=== PATIENT | female | born 1930 | race Caucasian/White ===

== ENCOUNTER 2016-11-21 11:30 | Inpatient (IN) | payer MEDICARE, OTHER ==
[~2016-11-21] VITALS: Ht 160 cm; Wt 75.4 kg
[~2016-11-21 11:30] MED LIST: GLUCOPHAGE 500500 MG PO
[2016-11-21 13:51] LABS: RED BLOOD COUNT 4.48 M/UL (4.00-5.10); WHITE BLOOD COUNT 9.6 K/UL (4.5-11.0)
[2016-11-21] MEDS ORDERED: COUMADIN3 MG PO (20:18)
[2016-11-21] MEDS ORDERED: LIPITOR TAB 1010 MG PO (20:19)
[2016-11-21] MEDS ORDERED: CYMBALTA30 MG PO (20:19)
[2016-11-21] MEDS ORDERED: METOPROLOL SUCC50 MG PO (20:19)
[2016-11-21] MEDS ORDERED: TRAMADOL HCL50 MG PO (20:20)
[2016-11-21] MEDS ORDERED: GLUCOPHAGE 500500 MG PO (20:20)
[2016-11-21] MEDS ORDERED: NORVASC 5 MG TAB5 MG PO (20:21)
[2016-11-21] MEDS ORDERED: HYDROCHLOROTHIA25 MG PO (20:21)
[2016-11-21] MEDS ORDERED: MELATONIN3 MG PO (20:22)
[2016-11-21] MEDS ORDERED: ALLEGRA ALLERG180 MG PO (20:22)
[2016-11-21] MEDS ORDERED: MAGNESIUM250 M1 PO (20:22)
[2016-11-22 07:35] LABS: HEMOGLOBIN 12.7 gm/dl (12.3-15.3); RED BLOOD COUNT 4.34 M/UL (4.00-5.10); WHITE BLOOD COUNT 7.7 K/UL (4.5-11.0)
[2016-11-22 07:50] LABS: BUN/CREATININE RATIO 33 (0-10)
[2016-11-24 06:45] LABS: HEMOGLOBIN 10.7 gm/dl (12.3-15.3); WHITE BLOOD COUNT 6.7 K/UL (4.5-11.0)
[2016-11-24 06:46] LABS: RED BLOOD COUNT 3.76 M/UL (4.00-5.10)
[2016-11-24 06:59] LABS: BUN/CREATININE RATIO 34 (0-10)
[2016-11-25 05:54] LABS: RED BLOOD COUNT 3.5 M/UL (4.00-5.10)
[2016-11-25 06:15] LABS: BUN/CREATININE RATIO 37 (0-10)
[2016-11-26 06:25] LABS: RED BLOOD COUNT 3.83 M/UL (4.00-5.10); WHITE BLOOD COUNT 7.5 K/UL (4.5-11.0)
== END 2016-11-26 20:40 | DRG 481 ==
LOC: ER1 11:30 → ZEROF 17:45 → M/S 17:45
PROVIDERS: Emergency Medicine; Internal Medicine; Orthopaedic Surgery; ADMIT Hospitalist
PROC: 0QS604Z Reposition Right Upper Femur with Internal Fixation Device, Open Approach (ICD-10-PCS; principal; 2016-11-23 12:00)
DX: S72.011A Unspecified intracapsular fracture of right femur, initial encounter for closed fracture (principal); D68.2 Hereditary deficiency of other clotting factors; W18.30XA Fall on same level, unspecified, initial encounter; Y92.009 Unspecified place in unspecified non-institutional (private) residence as the place of occurrence of the external cause; I49.5 Sick sinus syndrome; Z95.0 Presence of cardiac pacemaker; E11.9 Type 2 diabetes mellitus without complications; Z85.528 Personal history of other malignant neoplasm of kidney; I10 Essential (primary) hypertension; Z90.710 Acquired absence of both cervix and uterus; Z88.0 Allergy status to penicillin; Z88.2 Allergy status to sulfonamides; Z79.01 Long term (current) use of anticoagulants; Z79.84 Long term (current) use of oral hypoglycemic drugs; Z79.899 Other long term (current) drug therapy; Z83.3 Family history of diabetes mellitus; Z84.89 Family history of other specified conditions; I48.0 Paroxysmal atrial fibrillation
CPT/HCPCS: 36415; 70450; 71010; 72125; 72192; 73502; 73560; 73700; 76000; 80048; 80053; 80061; 82550; 82553; 82962; 83690; 83735; 83874; 83880; 84484; 85014; 85018; 85025; 85610; 85730; 93005; 96374; 96375; 97110; 97116; 97530; 97535; 99284; C1713; C1769; J1644; J2250; J2270; J2405; J3010; J7030; J7120